=== PATIENT | male | born 1955 | race Caucasian/White ===

== ENCOUNTER 2022-11-16 17:15 | Inpatient (IN) | payer OTHER ==
[~2022-11-16] VITALS: Ht 182.9 cm; Wt 88.4 kg
[~2022-11-16 17:15] MED LIST: ASPI81CH; GLIP10; LOSA50; LOSA50 PO; LOVA20
[2022-11-16 18:22] LABS: BASOPHILS ABSOLUTE AUTO 0.01 K/mm3 (0.00-0.23); BASOPHILS PERCENT AUTO 0 % (0-2); EOSINOPHILS PERCENT AUTO 0 % (0-6); Hemoglobin 12.7 g/dL (13.5-17.5); IMMATURE GRAN ABSOLUTE AUTO 0.05 K/mm3 (0.00-0.10); IMMATURE GRAN PERCENT AUTO 1 % (0-1); LYMPHOCYTES ABSOLUTE AUTO 0.58 K/mm3 (0.84-5.20); LYMPHOCYTES PERCENT AUTO 7 % (21-46); MONOCYTES ABSOLUTE AUTO 0.21 K/mm3 (0.16-1.47); MONOCYTES PERCENT AUTO 2 % (4-13); Mean Corpuscular HGB Conc 34.3 g/dL (31.5-36.5); Mean Corpuscular Volume 102 fL (80-100); Mean Platelet Volume 10.6 fL (9.1-12.4); NEUTROPHILS ABSOLUTE AUTO 7.86 K/mm3 (1.96-9.15); NEUTROPHILS PERCENT AUTO 90 % (41-73); Platelet Count 161 K/mm3 (150-400); RDW Coefficient Variation 12.2 % (11.7-14.2); RDW Standard Deviation 45.6 fL (35.1-46.3); Red Blood Cell Count 3.63 M/mm3 (4.30-5.90); White Blood Cell Count 8.71 K/mm3 (4.00-11.30)
[2022-11-16 18:44] LABS: Bun/Creatinine Ratio 14.1 (12.0-20.0); Creatinine, Blood 1.92 mg/dL (0.60-1.20); Magnesium, Blood 0.9 mg/dL (1.6-2.4); Potassium, Blood 4.7 mmol/L (3.5-5.5)
[2022-11-16 19:16] LABS: Influenza A, PCR NEGATIVE (NEGATIVE); Influenza B, PCR NEGATIVE (NEGATIVE); Resp Syncytial Virus, PCR NEGATIVE (NEGATIVE); SARS-Cov-2 (COVID-19) PCR, MMC NEGATIVE (NEGATIVE)
[2022-11-16] MEDS ORDERED: METF500 PO (19:36)
[2022-11-16 19:53] LABS: Base Excess Venous -10.8 mmol/L; Bicarbonate Venous 16.2 mmol/L (24.0-30.0); PCO2 Venous 41.5 mmHg (38-42)
[2022-11-16 19:54] LABS: pH Blood Venous 7.22 (7.34-7.37)
[2022-11-16 20:48] LABS: Bilirubin, Total 0.5 mg/dL (0.1-1.0); Bun/Creatinine Ratio 15.2 (12.0-20.0); Calcium, Blood 7.6 mg/dL (8.5-10.1); Creatinine, Blood 1.71 mg/dL (0.60-1.20); Globulin, Blood 3.1 g/dL (2.2-4.0); Potassium, Blood 4.3 mmol/L (3.5-5.5); Total Protein, Blood 6.1 g/dL (6.4-8.2)
[2022-11-16 21:06] LABS: Source, Urine Clean Catch
[2022-11-16 21:19] LABS: Bilirubin, Urine Neg (Neg); Blood, Urine 2+ (Neg); Color, Urine Yellow (P-Yellow); Glucose Qualitative, Urine Neg (Neg); Ketones, Urine 3+ (Neg); Leukocyte Esterase, Urine Neg (Neg); Nitrite, Urine Neg (Neg); Protein, Urine 1+ (Neg); Urobilinogen, Urine NORM (Normal)
[2022-11-16 21:30] LABS: Appearance, Urine Hazy (Clear)
[2022-11-16 21:35] LABS: Red Blood Cells, Urine 0-2 /hpf (0-2)
[2022-11-16 21:36] LABS: Amorphous Light (0-Heavy); Bacteria Mod /hpf; Hyaline Casts 0-2 /lpf (0-2); Mucus Light (0-Heavy); Squamous Epithelial Cells Rare /hpf (Few)
[2022-11-16 22:05] VITALS: BP 121/54
[2022-11-16 22:15] VITALS: BP 107/61
[2022-11-17] VITALS (7 sets, daily range): BP systolic 106–131; BP diastolic 56–68
[2022-11-17 04:03] LABS: BASOPHILS ABSOLUTE AUTO 0.01 K/mm3 (0.00-0.23); BASOPHILS PERCENT AUTO 0 % (0-2); EOSINOPHILS PERCENT AUTO 0 % (0-6); Hematocrit 31.4 % (37.0-53.0); IMMATURE GRAN ABSOLUTE AUTO 0.05 K/mm3 (0.00-0.10); IMMATURE GRAN PERCENT AUTO 1 % (0-1); LYMPHOCYTES ABSOLUTE AUTO 0.74 K/mm3 (0.84-5.20); LYMPHOCYTES PERCENT AUTO 8 % (21-46); MONOCYTES PERCENT AUTO 4 % (4-13); Mean Corpuscular HGB 34.2 pg (26.0-34.0); Mean Corpuscular Volume 98 fL (80-100); Mean Platelet Volume 10.2 fL (9.1-12.4); NEUTROPHILS ABSOLUTE AUTO 8.67 K/mm3 (1.96-9.15); NEUTROPHILS PERCENT AUTO 88 % (41-73); Platelet Count 132 K/mm3 (150-400); RDW Coefficient Variation 12.1 % (11.7-14.2); RDW Standard Deviation 43.3 fL (35.1-46.3); Red Blood Cell Count 3.22 M/mm3 (4.30-5.90); White Blood Cell Count 9.87 K/mm3 (4.00-11.30)
[2022-11-17 04:28] LABS: Albumin, Blood 2.6 g/dL (3.4-5.0); Albumin/Globulin Ratio 0.9 (0.8-1.8); Bilirubin, Total 0.6 mg/dL (0.1-1.0); Bun/Creatinine Ratio 18.9 (12.0-20.0); Calcium, Blood 7.3 mg/dL (8.5-10.1); Creatinine, Blood 1.22 mg/dL (0.60-1.20); Magnesium, Blood 1.1 mg/dL (1.6-2.4); Potassium, Blood 4.8 mmol/L (3.5-5.5); Total Protein, Blood 5.6 g/dL (6.4-8.2)
--- NOTE | 2022-11-17 05:29 | NUR ---
SHIFT SUMMARY A/OX4, SBA WITH TRANSFERS D/T GENERALIZED WEAKNESS. TELE SR 70-80S, DENIES CHEST PAIN/PRESSURE. SPO2 >92% ON 4L NC, RA AT BASELINE. PT REPORTS SOB WITH EXERTION. CIWA'S PER PROTOCOL <8. IV FLUIDS INFUSING PER EMAR. VSS, NO ACUTE CHANGES AT THIS TIME. BED IN LOWEST POSITION WITH CALL LIGHT IN REACH. WILL CONTINUE TO MONITOR AND REPORT TO ONCOMING RN. PT & FAMILY EDUCATED RE: IGNITION SOURCES & RISK OF INJURY WHILE OXYGEN IS IN USE. PT DENIES SMOKING AND PT & FAMILY VERBALIZE UNDERSTANDING.
[2022-11-17 09:07] LABS: PCO2 Venous 43.4 mmHg (38-42); pH Blood Venous 7.38 (7.34-7.37)
[2022-11-17 09:08] LABS: Base Excess Venous 0.1 mmol/L; Bicarbonate Venous 23.8 mmol/L (24.0-30.0)
--- NOTE | 2022-11-17 15:34 | NUR ---
THIS RN ASSUMED CARE AT 1500 [address] FROM [facility]. PATIENT ALERT AND ORIENTED X4. PERRLA. CHRONIC NUMBNESS TO TOES. ONE PERSON ASSIST WHEN UP. BED ALARM ON FOR SAFETY. AT BEDSIDE. ON 4L NASAL CANNULA SATING HIGH 90'S. DENIES SOB. ABLE TO TAKE DEEP BREATHS. OCCASIONAL COUGH, NOT ABLE TO PRODUCE SPUTUM AT THIS TIME. SPUTUM SAMPLE NEEDED. EVEN AND UNLABORED BREATHING. TELE SHOWING SR WITH 1ST DEGREE BLOCK, HR 90'S. BP STABLE 109/62 (76). DENIES CHEST PAIN/PRESSURE/PALPITATIONS. MURMUR HEARD. ECHO ORDERS IN PLACE. LAB RECENTLY IN ROOM DRAWING TROP. PPP. DENIES ABDOMINAL PAIN/NAUSEA. EATING AND VOIDING WNL. URINAL AT BEDSIDE. BOWEL TONES PRESENT. AC BLOOD SUGARS. SKIN OVERALL C/D/I. NS INFUSING PER EMAR. PATIENT RESTING IN BED AT THIS TIME. CALL LIGHT IN REACH. PATIENT EDUCATED ON FIRE RISK AND IGNIGTION SOURCES WHILE ON OXYGEN. PATIENT AND DENY ANY SOURCES OF IGNITION.
--- NOTE | 2022-11-17 17:41 | NUR ---
SHIFT SUMMARY: NO ACUTE CHANGES, SEE PREVIOUS NOTE. PATIENT REMAINS ALERT AND ORIENTED X4. CIWA SCORE 0. VITAL SIGNS STABLE. SATING ABOVE 95% ON 4L NASAL CANNULA. DENIES PAIN. TELE CONTINUES TO SHOW SR WITH 1ST DEGREE BLOCK. UP TO CHAIR WITH 1 PERSON ASSIST FOR DINNER. EATING DINNER AT THIS TIME. NS INFUSING PER EMAR. CALL LIGHT IN REACH. TO BEDSIDE THIS EVEING AND UPDATED ON PLAN OF CARE. TROP LEVEL WNL. ECHO ORDERS IN PLACE. DENIES NEEDS AT THIS TIME. CALL LIGHT IN REACH.
--- NOTE | 2022-11-17 22:04 | NUR ---
SAFETY & EDUCATION NOTE PT & FAMILY EDUCATED RE: IGNITION SOURCES & RISK OF INJURY WHILE OXYGEN IS IN USE. PT DENIES SMOKING AND PT & FAMILY VERBALIZE UNDERSTANDING.
[2022-11-18 02:58] VITALS: BP 131/76
[2022-11-18 03:38] LABS: BASOPHILS ABSOLUTE AUTO 0.01 K/mm3 (0.00-0.23); BASOPHILS PERCENT AUTO 0 % (0-2); EOSINOPHILS ABSOLUTE AUTO 0.05 K/mm3 (0.00-0.68); EOSINOPHILS PERCENT AUTO 1 % (0-6); Hematocrit 31.4 % (37.0-53.0); Hemoglobin 10.9 g/dL (13.5-17.5); IMMATURE GRAN ABSOLUTE AUTO 0.04 K/mm3 (0.00-0.10); IMMATURE GRAN PERCENT AUTO 1 % (0-1); LYMPHOCYTES PERCENT AUTO 12 % (21-46); MONOCYTES ABSOLUTE AUTO 0.34 K/mm3 (0.16-1.47); MONOCYTES PERCENT AUTO 5 % (4-13); Mean Corpuscular HGB 34.8 pg (26.0-34.0); Mean Corpuscular HGB Conc 34.7 g/dL (31.5-36.5); Mean Corpuscular Volume 100 fL (80-100); Mean Platelet Volume 10.5 fL (9.1-12.4); NEUTROPHILS ABSOLUTE AUTO 5.59 K/mm3 (1.96-9.15); NEUTROPHILS PERCENT AUTO 82 % (41-73); Platelet Count 115 K/mm3 (150-400); RDW Coefficient Variation 12.7 % (11.7-14.2); RDW Standard Deviation 46.8 fL (35.1-46.3); Red Blood Cell Count 3.13 M/mm3 (4.30-5.90); White Blood Cell Count 6.83 K/mm3 (4.00-11.30)
[2022-11-18 04:03] LABS: Magnesium, Blood 1.9 mg/dL (1.6-2.4)
[2022-11-18 04:05] LABS: Bun/Creatinine Ratio 14.9 (12.0-20.0); Calcium, Blood 7.9 mg/dL (8.5-10.1); Creatinine, Blood 0.87 mg/dL (0.60-1.20); Potassium, Blood 3.7 mmol/L (3.5-5.5)
--- NOTE | 2022-11-18 05:34 | NUR ---
SHIFT SUMMARY SEE PREVIOUS NOTE. PT A&Ox4, CALLS AND COMMUNICATES NEEDS APPROPRIATELY. BP STABLE, SINUS w/BBB 80's, DENIES CP/PRESSURE. SpO2> 92% 4L VIA NC, DENIES SOB. CONTINENT OF URINE, USES URINAL AT BEDSIDE IND. NO BM THIS SHIFT. CIWA's 0-8 THROUGHOUT SHIFT, MEDICATED PER EMAR. NO OTHER EVENTS, WILL REPORT TO ONCOMING RN.
[2022-11-18 07:41] VITALS: BP 132/74
--- NOTE | 2022-11-18 08:58 | NUR ---
DR SEEN PT THIS MORNING, THIS RN IN ROOM. QUICK O2 EVAL DONE BY WITH PT ON RA, PT TOLERATED WELL. DR INSTRUCTED THIS RN TO GIVE EVENING DOSES OF IV ANTIBIOTICS NOW AND THAT THE PT CAN BE DISCHARGED TODAY ON ORAL ANTIBIOTICS. PHARMACY CONTACTED, ANTIBIOTICS TO BE SENT DOWN AND GIVEN PER VERBAL ORDER.
--- NOTE | 2022-11-18 10:01 | NUR ---
IGNITION ASSESSMENT PT AND PT FAMILY ASSESSED FOR IGNITION RISK DEVICES, NONE REPORTED. PT AND PT FAMILY REMINDED THAT [facility] IS A SMOKE FREE FACILITY AND INSTRUCTED PT TO HAVE ANY VISITORS THAT SMOKE LEAVE IGNITION RISK DEVICES IN THEIR VEHICLES. PT AND PT FAMILY AGREED.
[2022-11-18] MEDS ORDERED: LEVO750 PO (13:49)
--- NOTE | 2022-11-18 14:14 | NUR ---
DISCHARGE UPDDATE DISCHARGE PACKET GONE OVER WITH PT AND PT AT 1355. PT DISCHARGED AT 1408. PT REFUSED WHEELCHAIR AND REQUESTED TO WALK, TOLERATED WELL. PT IN RA AND ABLE TO AMBULATE ON HIS OWN.
== END 2022-11-18 14:08 | disposition home or self-care (01) | DRG 871 ==
LOC: ER 17:15 → PCU 22:01
PROVIDERS: Hospitalist; Nurse Practitioner Acute Care; Student in an Organized Health Care Education/Training Program; ADMIT Internal Medicine
PROC: 3E03329 Introduction of Other Anti-infective into Peripheral Vein, Percutaneous Approach (ICD-10-PCS; principal; 2022-11-16)
PROC: 4A043R1 Measurement of Venous Saturation, Peripheral, Percutaneous Approach (ICD-10-PCS; 2022-11-16)
DX: A41.9 Sepsis, unspecified organism (principal); J18.9 Pneumonia, unspecified organism; J96.01 Acute respiratory failure with hypoxia; E87.20 Acidosis, unspecified; N17.9 Acute kidney failure, unspecified; E87.1 Hypo-osmolality and hyponatremia; N39.0 Urinary tract infection, site not specified; Z20.822 Contact with and (suspected) exposure to COVID-19; R65.20 Severe sepsis without septic shock; E86.0 Dehydration; I12.9 Hypertensive chronic kidney disease with stage 1 through stage 4 chronic kidney disease, or unspecified chronic kidney disease; N18.9 Chronic kidney disease, unspecified; E83.42 Hypomagnesemia; E11.22 Type 2 diabetes mellitus with diabetic chronic kidney disease; F10.20 Alcohol dependence, uncomplicated; E78.5 Hyperlipidemia, unspecified; Z79.84 Long term (current) use of oral hypoglycemic drugs; Z79.899 Other long term (current) drug therapy; Z79.82 Long term (current) use of aspirin; Z99.81 Dependence on supplemental oxygen
CPT/HCPCS: 0241U; 36415; 71045; 80048; 80053; 81001; 82010; 82803; 82947; 83605; 83735; 83880; 84145; 84484; 85025; 87040; 87086; 93005; 93010; 94760; 94762; 96361; 96365; 96366; 96368; 96375; 99285-25; A9270; C8929; J0456; J0696; J1650; J2405; J3475; J7030; J7050; Q9957